=== PATIENT | female | born 1985 | race African-American/Black ===

== ENCOUNTER 2016-12-28 15:31 | Emergency (ER) | payer BC ==
[~2016-12-28] VITALS: Ht 160 cm; Wt 59.1 kg
--- NOTE | ~2016-12-28 | EKG ---
PATIENT: LAKEISHA CLARK UNIT #: [id number] Ventricular Rate: 78 BPM Atrial Rate: 78 BPM P-R Interval: 140 ms QRS Duration: 82 ms Q-T Interval: 388 ms QTC Calculation(Bezet): 442 ms P [place]: 30 degrees Calculated R [place]: 10 degrees Calculated T [place]: 34 degrees Diagnosis Line: Normal sinus rhythm Diagnosis Line: Normal ECG Diagnosis Line: When compared with ECG of 15-APR-2016 23:14, Diagnosis Line: No significant change was found Diagnosis Line: Confirmed by VEDA GONGORA MD ([id number]) on Diagnosis Line: 12/29/2016 2:00:28 PM INTERPRETING MD: ROLAN HASTINGS
--- NOTE | ~2016-12-28 | CR72 ---
[facility] A Service of [facility] RADIOLOGY TEXT RESULTS PATIENT: LAKEISHA CLARK LOCATION: [facility] : [birth year] UNIT #: [id number] AGE: [address]: Oswaldo Bai MD SEX: F ORDER DR: [id number] [facility] [address] [place], [place] [address] [id number] MR#: [id number] #: [id number] NAME: LAKEISHA CLARK : 1985 SEX: F STUDY DATE/TIME: 12/28/2016 18:15 UNIT: [facility] ROOM: STUDY DESCRIPTION: CR Chest Single View Portable Attending Physician: Oswaldo Bai M.D. Ordering Physician: Oswaldo Bai M.D. Primary Care Physician: No Primary Care Physician MEDICAL IMAGING REPORT This report is preliminary unless electronic signature is present EXAM Portable chest. HISTORY Chest pain today. No injury. FINDINGS Cardiac size and pulmonary vascularity are normal. No airspace infiltrates or effusions. Mild right upper thoracic curve. IMPRESSION No acute findings. Dictated by... John Nava M.D. THIS IS AN ELECTRONICALLY VERIFIED REPORT John Nava M.D. at 12/29/2016 2:37 PM DFL/lazaro TD: 12/29/2016 09:13 JOB #: [id number] MEDICAL IMAGING REPORT Page 1 of 1 COPY
[~2016-12-28 15:31] MED LIST: ADVAIR 2501 DISK W/D PO; ALBUTEROL17 GM INH; AMITRYPTYLINE PO; AMOXICILLIN PO; ATIVAN PO; FLEXERIL PO; IBUPROFEN PO; LASIX PO; NIFEREX-150150 MG PO; NORCO 5/325 TAB1 TAB PO; PAXIL PO; PRENATAL MULITV1 TAB PO; TOPROL XL PO; ZANTAC PO; ZOLOFT PO
[2016-12-28 16:38] LABS: BASOPHIL% 0.7 % (0-2.5); EOSINOPHIL# 0.5 X10e3 (0-0.7); EOSINOPHIL% 8.5 % (0.0-7.0); HEMATOCRIT 44.6 % (35.0-45.0); HEMOGLOBIN 15.2 gm/dL (12.0-16.0); LYMPHOCYTE# 1.5 X10e3 (1.0-3.5); LYMPHOCYTE% 24.6 % (17.0-45.0); MEAN CELL VOLUME 90.1 FL (83-96); MEAN CORPUSCULAR HEMOGLOBIN 30.6 PG (28-34); MONOCYTE# 0.4 X10e3 (0-1.0); MONOCYTE% 6.6 % (3.0-12.0); NEUTROPHIL# 3.8 X10e3 (1.5-7.1); NEUTROPHIL% 59.6 % (40-75); PLATELET COUNT 238 X10e3 (140-420); RED BLOOD COUNT 4.95 X10e (3.90-5.30); RED CELL DISTRIBUTION WIDTH 12.4 % (11.0-15.5); WHITE BLOOD COUNT 6.3 X10e3 (4.0-10.5)
[2016-12-28 16:39] LABS: DIFF IND NO
[2016-12-28 17:10] LABS: ALBUMIN SERUM 4.7 g/dL (3.5-5.0); BILIRUBIN, DIRECT 0.1 mg/dL (0.0-0.2); BILIRUBIN,INDIRECT 0.6 mg/dL (0.0-0.9); BILIRUBIN,TOTAL 0.7 mg/dL (0.2-2.0); BUN/CREATININE RATIO 15.71; CALCIUM SERUM 9.3 mg/dL (8.4-10.2); CREATININE SERUM 0.7 mg/dL (0.6-1.4); GLOM FILT RATE Estimated 131.9 mL/min (>60); POTASSIUM 3.2 mmol/L (3.5-5.1); PROTEIN TOTAL SERUM 8.6 g/dL (6.0-8.3)
[2016-12-28 18:20] LABS: POC - CKMB <1.0 ng/mL (0.0-7.9); POC - TROPONIN <0.05 ng/mL (<=0.05)
[2016-12-28 18:46] LABS: POC - CKMB 1.1 ng/mL (0.0-7.9); POC - TROPONIN <0.05 ng/mL (<=0.05)
[2016-12-28 19:09] LABS: POC - TROPONIN <0.05 ng/mL (<=0.05)
== END 2016-12-28 19:25 | disposition home or self-care (01) ==
LOC: CED 15:31
PROVIDERS: Emergency Medicine
DX: R07.9 Chest pain, unspecified (principal); R00.2 Palpitations; F41.9 Anxiety disorder, unspecified
CPT/HCPCS: 36415; 71010; 80048; 80076; 82553; 84484; 84703; 85025; 93005; 99285

== ENCOUNTER 2017-01-18 14:52 | Emergency (ER) | payer BC ==
[~2017-01-18] VITALS: Ht 160 cm; Wt 63.5 kg
== END 2017-01-18 15:35 | disposition home or self-care (01) ==
LOC: CED 14:52 → CFTX 14:52
DX: L03.114 Cellulitis of left upper limb (principal); L03.113 Cellulitis of right upper limb; F41.9 Anxiety disorder, unspecified
CPT/HCPCS: 99283